=== PATIENT | female | born 1985 | race Caucasian/White ===

== ENCOUNTER 2017-12-15 10:55 | Emergency (ER) | payer MEDICAID | END 2017-12-15 11:49 | disposition home or self-care (01) | LOC: E/R 11:49 | DX: R21 Rash and other nonspecific skin eruption (principal) | CPT/HCPCS: 99284; Z7502 ==

== ENCOUNTER 2017-12-26 08:26 | Emergency (ER) | payer MEDICAID | END 2017-12-26 09:38 | disposition home or self-care (01) | LOC: FTE 08:26 | DX: R21 Rash and other nonspecific skin eruption (principal) | CPT/HCPCS: 99283; Z7502 ==

== ENCOUNTER 2018-10-20 01:46 | Emergency (ER) | payer MEDICAID ==
[2018-10-20] MEDS: IBUPROFEN 600 MG TAB PO (03:52)
[2018-10-20] MEDS: ACETAMINOPHEN 500 MG TAB PO (03:52)
[2018-10-20] MEDS: PROMETHAZINE/DM (CUP) PO (04:26)
[2018-10-20] MEDS: DIPHENHYDRAMINE 50 MG CAP PO (04:26)
[2018-10-20] MEDS ORDERED: PROMETHAZINE/DM (CUP) PO (04:30)
== END 2018-10-20 05:34 | disposition home or self-care (01) ==
LOC: FTE 01:46
DX: B34.9 Viral infection, unspecified (principal)
CPT/HCPCS: 71045; 87400; 99284-25